=== PATIENT | female | born 1990 | race African-American/Black ===

== ENCOUNTER 2016-10-30 15:36 | Inpatient (IN) | payer OTHER, MEDICAID ==
[2016-10-30] MEDS ORDERED: Misoprostol 100 MCG Tab VAG PRN (16:46)
[2016-10-30] MEDS ORDERED: Nalbuphine 20 MG/1 ML Amp IVPUSH PRN (16:46)
[2016-10-30] MEDS ORDERED: Sodium Chloride 0.9% 10 ML Syringe FLUSH PRN (16:46)
[2016-10-30] MEDS ORDERED: Ondansetron 4 MG/2 ML SDV IVPUSH PRN (16:46)
[2016-10-30] MEDS ORDERED: Zolpidem 5 MG Tab PO PRN (16:46)
--- NOTE | 2016-10-30 16:53 | PCM.LDHP ---
L&D History of Present Illness - General Date of Service: 10/30/16 Admit Problem/Dx: Patient Status Order with Admit Dx/Problem 10/30/16 15:52 Patient Status [ADT] Routine Admission Diagnosis/Problem Admission Diagnosis/Problem Normal Source of Information: Patient History Limitations: Reports: No Limitations - History of Present Illness Introduction:: Patient is a 26 y/o at 40 1/7 wks who presents to L&D for NST and serial BP 's after being seen in clinic with a mild range BP and intermittent headaches. Doing well. No new concerns. 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: : 1 Para: 0 LMP (Approximate): - Past Surgical History HEENT Surgical History: Reports: Visual (Corneal transplant) Social & Family History - Family History Family Medical History: Noncontributory - Tobacco Use Smoking Status *Q: Former Smoker - Alcohol Use Alcohol Use History: No - Recreational Drug Use Recreational Drug Use: No H&P Review of Systems - Review of Systems: Review Of Systems: See Below General: Reports: No Symptoms HEENT: Reports: Headaches Pulmonary: Reports: No Symptoms Cardiovascular: Reports: No Symptoms Gastrointestinal: Reports: No Symptoms Genitourinary: Reports: No Symptoms Musculoskeletal: Reports: No Symptoms Skin: Reports: No Symptoms Psychiatric: Reports: No Symptoms L&D Exam - Exam Exam: See Below - OB Specific Contraction Intensity: Irritability Movement: Active Heart Tones: Present Heart Tones per Min: 140 Heart Rate (FHR) Variability: Moderate (6-25 bmp) Presentation: Vertex - Bernardo Score Bernardo Score Cervix Position: Posterior Bernardo Score Consistency: Medium Bernardo Score Effacement: 0-30% Bernardo Score Dilation: 1-2 cm Bernardo Score 's Station: -3 Bernardo Score Total: 2 - Exam General: Alert, Oriented, Cooperative Lungs: Clear to Auscultation, Normal Respiratory Effort Cardiovascular: Regular Rate, Regular Rhythm Abdomen: Soft Genitourinary: Normal external exam Extremities: Normal Inspection Skin: Warm, Dry, Intact - Patient Data Result Diagrams: 10/30/16 17:40 - Problem List (1) 40 weeks gestation of SNOMED Code(s): 54929472 ICD Code: Z3A.40 - 40 WEEKS GESTATION OF Status: Acute Current Visit: Yes (2) Preeclampsia SNOMED Code(s): 726285675 ICD Code: O14.90 - UNSPECIFIED PRE-ECLAMPSIA, UNSPECIFIED TRIMESTER Status : Acute Current Visit: Yes Qualifiers: Trimester: third trimester Qualified Code(s): O14.93 - Unspecified pre- eclampsia, third trimester (3) Sickle cell trait SNOMED Code(s): 27521032 ICD Code: D57.3 - SICKLE-CELL TRAIT Status: Acute Current Visit: Yes (4) Group B Streptococcus carrier, +RV culture, currently SNOMED Code(s): 45138082, 203426737 ICD Code: O99.820 - STREPTOCOCCUS B CARRIER STATE COMPLICATING Status: Acute Current Visit: Yes Problem List Initiated/Reviewed/Updated: Yes Orders Last 24hrs: Active Orders 24 hr Category Date Time Status Patient Status [ADT] Routine ADT 10/30/16 15:52 Active Communication Order [RC] ASDIRECTED Care 10/30/16 16:47 Ordered Communication Order [RC] ASDIRECTED Care 10/30/16 16:47 Ordered Monitoring [RC] CONTINUOUS Care 10/30/16 16:47 Ordered Non Stress Test [RC] PER UNIT ROUTINE Care 10/30/16 15:52 Inactive Notify Provider Status Change [RC] ASDIRECTED Care 10/30/16 16:46 Ordered Notify Provider Vital Signs [RC] ASDIRECTED Care 10/30/16 16:46 Ordered Notify Provider [RC] ASDIRECTED Care 10/30/16 16:47 Ordered Notify Provider [RC] ASDIRECTED Care 10/30/16 16:47 Ordered Notify Provider [RC] PRN Care 10/30/16 16:47 Ordered Oxygen Therapy [RC] PRN Care 10/30/16 16:47 Ordered Peripheral IV Care [RC] . DIRECTED Care 10/30/16 16:48 Ordered Vaginal Exam [RC] ASDIRECTED Care 10/30/16 16:47 Ordered Vital Signs [RC] ASDIRECTED Care 10/30/16 15:52 Inactive Vital Signs [RC] ASDIRECTED Care 10/30/16 16:47 Ordered Regular Diet [DIET] Diet 10/30/16 Dinner Ordered CBC W/O DIFF,HEMOGRAM [HEME] Routine Lab 10/30/16 16:46 Ordered TYPE AND SCREEN [BBK] Routine Lab 10/30/16 16:46 Ordered Lactated Ringers [Ringers, Lactated] 1,000 ml Med 10/30/16 17:00 Ordered IV ASDIRECTED Misoprostol [Cytotec] Med 10/30/16 16:46 Ordered 25 mcg VAG Q4H PRN Nalbuphine [Nubain] Med 10/30/16 16:46 Ordered 10 mg IVPUSH Q2H PRN Ondansetron [Zofran] Med 10/30/16 16:46 Ordered 4 mg IVPUSH Q4H PRN Oxytocin/Lactated Ringers [Pitocin in LR 10 Units/1,000 Med 10/30/16 17:00 Ordered ML] 10 unit in 1,000 ml IV TITRATE Sodium Chloride 0.9% [Saline Flush] Med 10/30/16 16:46 Ordered 10 ml FLUSH ASDIRECTED PRN Zolpidem [Ambien] Med 10/30/16 16:46 Ordered 10 mg PO BEDTIME PRN Blood Pressure [OM.PC] ASDIRECTED Oth 10/30/16 17:00 Ordered Deep Tendon Reflexes [WOMSER] ASDIRECTED Oth 10/30/16 17:00 Ordered Peripheral IV Insertion Adult [OM.PC] Routine Oth 10/30/16 16:47 Ordered Resuscitation Status Routine Resus Stat 10/30/16 15:52 Ordered Medication Orders Lactated Ringer's (Ringers, Lactated) 1,000 mls @ 40 mls/hr IV ASDIRECTED AYSE Oxytocin/Lactated Ringer's (Pitocin In Lr 10 Units/1,000 Ml) 10 unit in 1,000 mls @ 500 mls/hr IV TITRATE AYSE PRN Reason: Protocol Misoprostol (Cytotec) 25 mcg VAG Q4H PRN PRN Reason: cervical ripening Stop: 10/31/16 00:47 Nalbuphine HCl (Nubain) 10 mg IVPUSH Q2H PRN PRN Reason: Pain (moderate 4-6) Ondansetron HCl (Zofran) 4 mg IVPUSH Q4H PRN PRN Reason: Nausea/Vomiting Sodium Chloride (Saline Flush) 10 ml FLUSH ASDIRECTED PRN PRN Reason: Keep Vein Open Zolpidem Tartrate (Ambien) 10 mg PO BEDTIME PRN PRN Reason: Insomnia Assessment/Plan Comment:: 26 y/o at 40 1/7 wks presents for serial BP's - findings of all mild range BP's. Will keep for IOL for preeclampsia * Labs done in clinic and WNL. Will do T&S and CBC here as patient does desire epidural eventually * Cytotec for induction * Will start PCN for GBS positive status when switch to pitocin, likely after 3 doses of cytotec * Monitor BP's and signs/symptoms of preeclampsia closely * Anticipate Kalie Ponce MD
[2016-10-30] MEDS ORDERED: Oxytocin/Lactated Ringers 10 UNIT/1,000 ML BAG IV SCH (17:00)
[2016-10-30] MEDS ORDERED: Diphtheria,Pertussis(Acell),Tetanus Vaccine 0.5 ML SDV IM ONE (18:03)
[2016-10-30] MEDS: Misoprostol 25 MCG (1/4 of 100 MCG) Tab VAG SCH ×2 (18:45→23:26)
--- NOTE | 2016-10-30 19:28 | PCM.PREANE ---
Preanesthetic Assessment - Procedure Proposed Procedure: Labor Epidural - Anesthesia/Transfusion/Family Hx Anesthesia History: Prior Anesthesia Without Reaction Family History of Anesthesia Reaction: No Transfusion History: No Prior Transfusion(s) Intubation History: Unknown Additional History: Bilateral cornea transplants - Review of Systems General: No Symptoms Pulmonary: No Symptoms Cardiovascular: Other (HTN with ) Neurological: No Symptoms Other: Reports: None - Physical Assessment NPO Status Date: 10/30/16 NPO Status Time: 16:00 O2 Sat by Pulse Oximetry: 98 Respiratory Rate: 14 Vital Signs: Last Vital Signs Temp 36.9 C 10/30/16 17:59 Pulse 86 10/30/16 17:59 Resp 14 10/30/16 17:59 BP 134/87 10/30/16 17:59 Pulse Ox 98 10/30/16 17:59 Height: 1.6 m Weight: 97.069 kg ASA Class: 2 Mental Status: Alert & Oriented x3 Airway Class: Mallampati = 2 Dentition: Reports: Normal Dentition Thyro-Mental Finger Breadths: 3 Mouth Opening Finger Breadths: 3 ROM/Head Extension: Full Lungs: Clear to auscultation, Normal respiratory effort Cardiovascular: Regular Rate, Regular Rhythm - Lab Values: Laboratory Last Values WBC 6.46 K/mm3 (3.98-10.04) 10/30/16 17:40 RBC 4.73 M/mm3 (3.98-5.22) 10/30/16 17:40 Hgb 11.9 gm/L (11.2-15.7) 10/30/16 17:40 Hct 36.8 % (34.1-44.9) 10/30/16 17:40 MCV 77.8 fl (79.4-94.8) L 10/30/16 17:40 MCH 25.2 pg (25.6-32.2) L 10/30/16 17:40 MCHC 32.3 g/dl (32.2-35.5) 10/30/16 17:40 RDW Std Deviation 45.7 fL (36.4-46.3) 10/30/16 17:40 Plt Count 296 K/mm3 (182-369) 10/30/16 17:40 MPV 9.5 fl (9.4-12.3) 10/30/16 17:40 Blood Type O POSITIVE 10/30/16 17:40 Gel Antibody Screen Negative 10/30/16 17:40 - Allergies Allergies/Adverse Reactions: Allergies Allergy/AdvReac Type Severity Reaction Status Date / Time No Known Allergies Allergy Verified 10/30/16 18:03 - Blood Blood Available: No Product(s) Available: None - Anesthesia Plan Pre-Op Medication Ordered: None - Acknowledgements Anesthesia Type Planned: Epidural Pt an Appropriate Candidate for the Planned Anesthesia: Yes Alternatives and Risks of Anesthesia Discussed w Pt/Guardian: Yes Pt/Guardian Understands and Agrees with Anesthesia Plan: Yes PreAnesthesia Questionnaire 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: Endocrine/Metabolic History: Reports: Obesity/BMI 30+ - Past Surgical History HEENT Surgical History: Reports: Other (See Below) Other HEENT Surgeries/Procedures: Cornea transplant 2014 - SUBSTANCE USE Smoking Status *Q: Former Smoker Tobacco Use Within Last Twelve Months: No Recreational Drug Use History: No - HOME MEDS Home Medications: Home Meds PNV95/Ferrous Fumarate/FA [ Tablet] 1 tab PO DAILY 10/30/16 [History] Sulfacetm Na/Prednisol Ac [Blephamide Eye Ointment] 3.5 gm OP DAILY 10/30/16 [ History] - CURRENT (IN HOUSE) MEDS Current Meds: Current Medications Lactated Ringer's (Ringers, Lactated) 1,000 mls @ 40 mls/hr IV ASDIRECTED AYSE Oxytocin/Lactated Ringer's (Pitocin In Lr 10 Units/1,000 Ml) 10 unit in 1,000 mls @ 500 mls/hr IV TITRATE AYSE PRN Reason: Protocol Misoprostol (Cytotec) 25 mcg VAG Q4H AYSE Last Admin: 10/30/16 18:45 Dose: 25 mcg Nalbuphine HCl (Nubain) 10 mg IVPUSH Q2H PRN PRN Reason: Pain (moderate 4-6) Ondansetron HCl (Zofran) 4 mg IVPUSH Q4H PRN PRN Reason: Nausea/Vomiting Sodium Chloride (Saline Flush) 10 ml FLUSH ASDIRECTED PRN PRN Reason: Keep Vein Open Zolpidem Tartrate (Ambien) 10 mg PO BEDTIME PRN PRN Reason: Insomnia Discontinued Medications Diphtheria/Tetanus/Acell Pertussis (Adacel) 0.5 ml IM .ONCE ONE Stop: 10/30/16 18:04 Misoprostol (Cytotec) 25 mcg VAG Q4H PRN PRN Reason: cervical ripening Stop: 10/31/16 00:47
[2016-10-31] MEDS: Misoprostol 25 MCG (1/4 of 100 MCG) Tab VAG SCH (03:38)
--- NOTE | 2016-10-31 07:30 | PCM.PNLD ---
Labor Progress Note - VS & Meds Vital Signs: Last Vital Signs Temp 36.9 C 10/30/16 17:59 Pulse 86 10/30/16 17:59 Resp 14 10/30/16 20:02 BP 134/87 10/30/16 17:59 Pulse Ox 98 10/30/16 20:02 Active Medications: Current Medications Lactated Ringer's (Ringers, Lactated) 1,000 mls @ 40 mls/hr IV ASDIRECTED AYSE Oxytocin/Lactated Ringer's (Pitocin In Lr 10 Units/1,000 Ml) 10 unit in 1,000 mls @ 500 mls/hr IV TITRATE AYSE PRN Reason: Protocol Misoprostol (Cytotec) 25 mcg VAG Q4H AYSE Last Admin: 10/31/16 03:38 Dose: 25 mcg Nalbuphine HCl (Nubain) 10 mg IVPUSH Q2H PRN PRN Reason: Pain (moderate 4-6) Ondansetron HCl (Zofran) 4 mg IVPUSH Q4H PRN PRN Reason: Nausea/Vomiting Sodium Chloride (Saline Flush) 10 ml FLUSH ASDIRECTED PRN PRN Reason: Keep Vein Open Zolpidem Tartrate (Ambien) 10 mg PO BEDTIME PRN PRN Reason: Insomnia Last Admin: 10/31/16 00:30 Dose: 10 mg Discontinued Medications Diphtheria/Tetanus/Acell Pertussis (Adacel) 0.5 ml IM .ONCE ONE Stop: 10/30/16 18:04 Misoprostol (Cytotec) 25 mcg VAG Q4H PRN PRN Reason: cervical ripening Stop: 10/31/16 00:47 - Uterine Contractions Uterine Monitoring Mode: External [place] Contraction Intensity: Mild Uterine Resting Tone: Soft - Monitoring Monitor Mode: External Ultrasound Heart Rate (FHR) Baseline: 140 Heart Rate (FHR) Variability: Moderate (6-25 bmp) Accelerations: Present, 15x15 Decelerations: Variable (Rare overnight) Strip Review: Category II - Vaginal Exam Dilation (cm): 2 Effacement (Percent): 70 Station: -3 Cervical Position: Midposition - Labor Progress (Free Text) Labor Progress: Patient doing well. S/p 3 doses of Cytotec overnight. Brownlee bulb placed this morning. Will also start pitocin. GBS prophylaxis to be started later this AM/ when brownlee falls out.
[2016-10-31] MEDS ORDERED: Bupivacaine 0.25% 10 ML SDV ONE (09:00)
[2016-10-31] MEDS ORDERED: ePHEDrine 50 MG/ML SDV ONE (09:00)
[2016-10-31] MEDS ORDERED: Lidocaine 1% PF 2 ML SDV ONE (09:00)
[2016-10-31] MEDS: Lactated Ringers 1,000 ML IV SCH ×4 (09:15→16:01)
[2016-10-31] MEDS ORDERED: Oxytocin/Lactated Ringers 10 UNIT/1,000 ML BAG IV SCH (09:15)
[2016-10-31] MEDS ORDERED: Penicillin G Potassium 5 MILLUNITS in Sodium Chloride 0.9% 100 ML IV ONE (09:45)
--- NOTE | 2016-10-31 11:40 | PCM.PNLD ---
Labor Progress Note - VS & Meds Vital Signs: Last Vital Signs Temp 36.9 C 10/30/16 17:59 Pulse 86 10/30/16 17:59 Resp 14 10/30/16 20:02 BP 134/87 10/30/16 17:59 Pulse Ox 98 10/30/16 20:02 Active Medications: Current Medications Lactated Ringer's (Ringers, Lactated) 1,000 mls @ 40 mls/hr IV ASDIRECTED AYSE Last Admin: 10/31/16 09:15 Dose: 40 mls/hr Oxytocin/Lactated Ringer's (Pitocin In Lr 10 Units/1,000 Ml) 10 unit in 1,000 mls @ 500 mls/hr IV TITRATE AYSE PRN Reason: Protocol Oxytocin/Lactated Ringer's (Pitocin In Lr 10 Units/1,000 Ml) 10 unit in 1,000 mls @ 12 mls/hr IV TITRATE AYSE; 2 MUNITS/MIN PRN Reason: Protocol Last Titration: 10/31/16 11:11 Dose: 4 munits/min, 24 mls/hr Misoprostol (Cytotec) 25 mcg VAG Q4H AYSE Last Admin: 10/31/16 03:38 Dose: 25 mcg Nalbuphine HCl (Nubain) 10 mg IVPUSH Q2H PRN PRN Reason: Pain (moderate 4-6) Ondansetron HCl (Zofran) 4 mg IVPUSH Q4H PRN PRN Reason: Nausea/Vomiting Sodium Chloride (Saline Flush) 10 ml FLUSH ASDIRECTED PRN PRN Reason: Keep Vein Open Zolpidem Tartrate (Ambien) 10 mg PO BEDTIME PRN PRN Reason: Insomnia Last Admin: 10/31/16 00:30 Dose: 10 mg Discontinued Medications Diphtheria/Tetanus/Acell Pertussis (Adacel) 0.5 ml IM .ONCE ONE Stop: 10/30/16 18:04 Penicillin G Potassium 5 (millunits/ Sodium Chloride) 100 mls @ 55 mls/hr IV ONETIME ONE Stop: 10/31/16 11:34 Last Admin: 10/31/16 11:12 Dose: 55 mls/hr Misoprostol (Cytotec) 25 mcg VAG Q4H PRN PRN Reason: cervical ripening Stop: 10/31/16 00:47 - Uterine Contractions Uterine Monitoring Mode: External [place] Contraction Intensity: Mild to Moderate Uterine Resting Tone: Soft - Monitoring Monitor Mode: External Ultrasound Heart Rate (FHR) Baseline: 140 Heart Rate (FHR) Variability: Moderate (6-25 bmp) Accelerations: Present, 15x15 Decelerations: None Strip Review: Category I - Vaginal Exam Dilation (cm): 2 Effacement (Percent): 70 Station: -3 Cervical Position: Midposition - Labor Progress (Free Text) Labor Progress: Patient feeling uncomfortable with pitocin. Only at 2. Requesting epidural. Given similar exam have asked patient to try to be up on ball/etc with contractions. If does need an epidural can be given, but there is a long time to delivery. She expressed understanding. CAROLINEN started
[2016-10-31] MEDS ORDERED: diphenhydrAMINE 50 MG/ML SDV IVPUSH PRN ×2 (13:04→19:41)
[2016-10-31] MEDS ORDERED: fentaNYL 100 MCG/2 ML SDV EPIDUR PRN (13:04)
[2016-10-31] MEDS ORDERED: ePHEDrine 50 MG/ML SDV IVPUSH PRN (13:04)
[2016-10-31] MEDS ORDERED: Bupivacaine/fentaNYL/NS 100 ML Bag EPIDUR SCH (13:15)
--- NOTE | 2016-10-31 16:03 | PCM.PNLD ---
Labor Progress Note - VS & Meds Vital Signs: Last Vital Signs Temp 36.9 C 10/30/16 17:59 Pulse 86 10/30/16 17:59 Resp 14 10/30/16 20:02 BP 134/87 10/30/16 17:59 Pulse Ox 98 10/30/16 20:02 Active Medications: Current Medications Diphenhydramine HCl (Benadryl) 25 mg IVPUSH Q6H PRN PRN Reason: pruritis Ephedrine Sulfate (Ephedrine Sulfate) 5 mg IVPUSH ASDIRECTED PRN PRN Reason: Hypotension Fentanyl (Sublimaze) 100 mcg EPIDUR Q3H PRN PRN Reason: Pain Last Admin: 10/31/16 14:02 Dose: 100 mcg Fentanyl/Bupivacaine HCl (Fentanyl/Bupivacaine/Ns 2 Mcg-0.125% 100 Ml) 100 ml EPIDUR ASDIRECTED AYSE Last Admin: 10/31/16 14:02 Dose: 100 ml Lactated Ringer's (Ringers, Lactated) 1,000 mls @ 40 mls/hr IV ASDIRECTED AYSE Last Admin: 10/31/16 14:32 Dose: 40 mls/hr Oxytocin/Lactated Ringer's (Pitocin In Lr 10 Units/1,000 Ml) 10 unit in 1,000 mls @ 500 mls/hr IV TITRATE AYSE PRN Reason: Protocol Oxytocin/Lactated Ringer's (Pitocin In Lr 10 Units/1,000 Ml) 10 unit in 1,000 mls @ 12 mls/hr IV TITRATE AYSE; 2 MUNITS/MIN PRN Reason: Protocol Last Titration: 10/31/16 15:20 Dose: 8 munits/min, 48 mls/hr Penicillin G Potassium 2.5 (millunits/ Sodium Chloride) 100 mls @ 55 mls/hr IV Q6H AYSE Misoprostol (Cytotec) 25 mcg VAG Q4H AYSE Last Admin: 10/31/16 03:38 Dose: 25 mcg Nalbuphine HCl (Nubain) 10 mg IVPUSH Q2H PRN PRN Reason: Pain (moderate 4-6) Ondansetron HCl (Zofran) 4 mg IVPUSH Q4H PRN PRN Reason: Nausea/Vomiting Sodium Chloride (Saline Flush) 10 ml FLUSH ASDIRECTED PRN PRN Reason: Keep Vein Open Zolpidem Tartrate (Ambien) 10 mg PO BEDTIME PRN PRN Reason: Insomnia Last Admin: 10/31/16 00:30 Dose: 10 mg Discontinued Medications Diphtheria/Tetanus/Acell Pertussis (Adacel) 0.5 ml IM .ONCE ONE Stop: 10/30/16 18:04 Penicillin G Potassium 5 (millunits/ Sodium Chloride) 100 mls @ 55 mls/hr IV ONETIME ONE Stop: 10/31/16 11:34 Last Admin: 10/31/16 11:12 Dose: 55 mls/hr Misoprostol (Cytotec) 25 mcg VAG Q4H PRN PRN Reason: cervical ripening Stop: 10/31/16 00:47 - Uterine Contractions Uterine Monitoring Mode: External [place] Contraction Intensity: Moderate Uterine Resting Tone: Soft - Monitoring Monitor Mode: External Ultrasound Heart Rate (FHR) Baseline: 145 Heart Rate (FHR) Variability: Moderate (6-25 bmp) Accelerations: Present, 15x15 - Vaginal Exam Dilation (cm): 4 Effacement (Percent): 70 Station: -3 Cervical Position: Midposition - Labor Progress (Free Text) Labor Progress: Patient was on 8 of pitocin. Nursing had concerns for possible deceleration into the 50's for 30 seconds. I presented and FHR in the 140's. Uncertain whether brief monitoring in the 50's/60's was monitor halving FHR. Nuring already discontinued pitocin. AROM performed by me with FSE placed. Thin meconium staining noted. Will continue to monitor closely for now and restart pitocin if able.
[2016-10-31] MEDS ORDERED: Citric Acid/Sodium Citrate Solution 30 ML Cup PO ONE (16:58)
[2016-10-31] MEDS ORDERED: ceFAZolin 2 GM in Premix Bag 1 BAG IV ONE (16:58)
[2016-10-31] MEDS ORDERED: Metoclopramide 10 MG/2 ML SDV IVPUSH ONE (16:58)
--- NOTE | 2016-10-31 16:58 | PCM.SN ---
- Free Text/Narrative Note: Baby has now had continued intermittent late decelerations and variables. Also with longer period of minimal variability. Discussed with patient that cervix is similar to last exam. Only on pitocin of 4 which again was discontinued. Reviewed options and recommendation for for NRFS. They agree. OR crew and [employer] team aware. Kalie Ponce MD
[2016-10-31] MEDS ORDERED: Lactated Ringers 1,000 ML IV SCH (17:00)
[2016-10-31] MEDS ORDERED: Penicillin G Potassium 2.5 MILLUNITS in Sodium Chloride 0.9% 100 ML IV SCH (17:00)
--- NOTE | 2016-10-31 17:01 | PCM.OPNOTE ---
- General Post-Op/Procedure Note Date of Surgery/Procedure: 10/31/16 Operative Procedure(s): Primary Low Transverse Findings: Baby girl in a vertex presentation. Weight of 8lbs 4oz and APGARS of 8 & 9. Normal appearance of the uterus, fallopian tubes, and ovaries. Pre Op Diagnosis: 40 weeks gestation. Preeclampsia. Non reassuring status. Thick meconium stained fluid Post-Op Diagnosis: Same Anesthesia Technique: Epidural Primary Surgeon: Kalie Ponce Secondary Surgeon: Zelalem Brooks Anesthesia Provider: Bayron Starr Pathology: Cord blood collected. Placenta discarded. Fluid Replacement, Intraop: 1,200 Output, Urine Amount: 100 EBL in mLs: 500 Complications: None Condition: Good Free Text/Narrative:: The risks, benefits, indications, potential complications, and alternatives were explained to the patient and informed consent obtained. After induction of anesthesia, the patient was placed in a supine position and then draped and prepped in the usual sterile manner. A Pfannenstiel incision was made and carried down through the subcutaneous tissue to the fascia. Fascial incision was made and extended transversely. The fascia was from the underlying rectus tissue superiorly and inferiorly. The peritoneum was identified and entered. Peritoneal incision was extended longitudinally. The utero-vesical peritoneal reflection was incised transversely and the bladder flap was bluntly freed from the lower uterine segment. A low transverse uterine incision was made sharply with a scalpel and extended bluntly in a cephalocaudad direction. A baby girl was delivered from a vertex presentation with APGARS as above. After the umbilical cord was clamped and cut cord blood was obtained for evaluation. The placenta was removed intact and appeared normal. The uterus was exteriorized and cleared of clots. The uterine outline, tubes and ovaries appeared normal. The uterine incision was closed with running locked sutures of 0 Vicryl. Hemostasis was obtained with a second imbricating layer of 0 vicryl. The uterus was then placed back into the abdomen. The infracolic gutters were cleared of blood clots. The fascia was then reapproximated with running sutures of 0 Vicryl. The sucutaneous tissue was irrigated with sterile warm normal saline, hemostasis obtained with cautery. This layer was also closed with a running 0 Vicryl. The skin was reapproximated with running Subcuticular 4-0 monocryl sutures. Instrument, sponge, and needle counts were correct prior the abdominal closure and at the conclusion of the case.
[2016-10-31] MEDS ORDERED: Morphine PF 10 MG/10 ML SDV ONE (17:04)
[2016-10-31] MEDS ORDERED: Oxytocin 10 Units/1 ML SDV ONE (17:04)
[2016-10-31] MEDS ORDERED: ceFAZolin 1 GM Vial ONE (17:04)
[2016-10-31] MEDS ORDERED: Ondansetron 4 MG/2 ML SDV ONE (17:04)
[2016-10-31] MEDS ORDERED: Lactated Ringers 2,000 ML ONE (17:04)
[2016-10-31] MEDS ORDERED: Ketorolac 30 MG/ML SDV ONE (17:04)
[2016-10-31] MEDS ORDERED: Lidocaine 2% with EPINEPHrine 1:200,000 20 ML SDV ONE (17:09)
[2016-10-31] MEDS ORDERED: Sodium Bicarbonate 8.4% 50 MEQ/50 ML SDV ONE (17:09)
[2016-10-31] MEDS ORDERED: fentaNYL 100 MCG/2 ML SDV IVPUSH PRN (17:43)
[2016-10-31] MEDS ORDERED: Ondansetron 4 MG/2 ML SDV IVPUSH PRN (17:43)
--- NOTE | 2016-10-31 18:26 | PCM.POSTAN ---
POST ANESTHESIA ASSESSMENT - MENTAL STATUS Mental Status: alert, oriented - VITAL SIGNS Pulse Rate: 77 SaO2: 99 Resp Rate: 23 Blood Pressure: 120/59 Temperature: 97.7 F - RESPIRATORY Respiratory Status: respiratory rate WNL, airway patent, O2 saturation stable, supplemental oxygen - CARDIOVASCULAR CV Status: pulse rate WNL, blood pressure stable - GASTROINTESTINAL GI Status: no symptoms - PAIN Pain Score: 0 - POST OP HYDRATION Hydration Status: adequate & stable
[2016-10-31] MEDS ORDERED: Dextrose 5%-Lactated Ringers 1,000 ML IV SCH (19:41)
[2016-10-31] MEDS ORDERED: Lanolin 100% Cream 7 GM Tube TOP PRN (19:41)
[2016-10-31] MEDS: diphenhydrAMINE 50 MG/ML SDV IVPUSH PRN (22:56)
[2016-11-01] MEDS: Ketorolac 30 MG/ML SDV IVPUSH SCH ×3 (00:44→12:31)
--- NOTE | 2016-11-01 07:05 | PCM.PNPP ---
- General Info Date of Service: 11/01/16 Functional Status: Reports: pain controlled, tolerating diet, ambulating, urinating - Review of Systems General: Reports: No Symptoms Pulmonary: Reports: no symptoms Cardiovascular: Reports: No Symptoms Gastrointestinal: Reports: Abdominal pain (managed with medications ) Genitourinary: Reports: no symptoms Musculoskeletal: Reports: no symptoms - Patient Data Vital Signs - most recent: Last Vital Signs Temp 36.7 C 11/01/16 04:51 Pulse 85 11/01/16 04:51 Resp 17 11/01/16 07:00 BP 133/69 11/01/16 04:51 Pulse Ox 100 11/01/16 07:00 Weight - most recent: 97.069 kg I&O - last 24 hours: Intake & Output 10/31/16 11/01/16 11/01/16 22:59 06:59 14:59 Intake Total 4000 Output Total 870 1200 Balance 3130 -1200 Lab Results - last 24 hrs: Laboratory Results - last 24 hr 11/01/16 Range/Units 05:57 WBC 7.40 (3.98-10.04) K/mm3 RBC 3.92 L (3.98-5.22) M/mm3 Hgb 10.0 L (11.2-15.7) gm/L Hct 30.8 L (34.1-44.9) % MCV 78.6 L (79.4-94.8) fl MCH 25.5 L (25.6-32.2) pg MCHC 32.5 (32.2-35.5) g/dl RDW Std Deviation 46.4 H (36.4-46.3) fL Plt Count 229 (182-369) K/mm3 MPV 9.2 L (9.4-12.3) fl Med Orders - Current: Current Medications Diphenhydramine HCl (Benadryl) 25 mg IVPUSH Q6H PRN PRN Reason: pruritis Last Admin: 10/31/16 22:56 Dose: 25 mg Diphenhydramine HCl (Benadryl) 25 mg IVPUSH Q6H PRN PRN Reason: Itching or Nausea Docusate Sodium (Colace) 100 mg PO Q12H PRN PRN Reason: Constipation Emollient Ointment (Lansinoh Hpa) 0 gm TOP ASDIRECTED PRN PRN Reason: Sore Nipples Fentanyl (Sublimaze) 50 mcg IVPUSH Q5M PRN PRN Reason: Pain Ibuprofen (Motrin) 600 mg PO Q6H PRN PRN Reason: mild pain or fever Ketorolac Tromethamine (Toradol) 30 mg IVPUSH Q6H [facility] Stop: 11/01/16 12:31 Last Admin: 11/01/16 00:44 Dose: 30 mg Ondansetron HCl (Zofran) 4 mg IVPUSH ONETIME PRN PRN Reason: Nausea/Vomiting Oxycodone/Acetaminophen (Percocet 325-5 Mg) 2 tab PO Q4H PRN PRN Reason: Pain (moderate 4-6) Discontinued Medications Cefazolin Sodium (Ancef) Confirm Administered Dose 2 gm .ROUTE .STK-MED ONE Stop: 10/31/16 17:05 Citric Acid/Sodium Citrate (Bicitra Solution) 30 ml PO ONETIME ONE Stop: 10/31/16 16:59 Last Admin: 10/31/16 17:14 Dose: 30 ml Diphenhydramine HCl (Benadryl) 25 mg IVPUSH Q6H PRN PRN Reason: pruritis Diphtheria/Tetanus/Acell Pertussis (Adacel) 0.5 ml IM .ONCE ONE Stop: 10/30/16 18:04 Ephedrine Sulfate (Ephedrine Sulfate) 5 mg IVPUSH ASDIRECTED PRN PRN Reason: Hypotension Last Admin: 10/31/16 16:19 Dose: 5 mg Fentanyl (Sublimaze) 100 mcg EPIDUR Q3H PRN PRN Reason: Pain Last Admin: 10/31/16 14:02 Dose: 100 mcg Fentanyl/Bupivacaine HCl (Fentanyl/Bupivacaine/Ns 2 Mcg-0.125% 100 Ml) 100 ml EPIDUR ASDIRECTED [facility] Last Admin: 10/31/16 14:02 Dose: 100 ml Lactated Ringer's (Ringers, Lactated) 1,000 mls @ 40 mls/hr IV ASDIRECTED [facility] Last Admin: 10/31/16 16:01 Dose: 40 mls/hr Oxytocin/Lactated Ringer's (Pitocin In Lr 10 Units/1,000 Ml) 10 unit in 1,000 mls @ 500 mls/hr IV TITRATE [facility] PRN Reason: Protocol Oxytocin/Lactated Ringer's (Pitocin In Lr 10 Units/1,000 Ml) 10 unit in 1,000 mls @ 12 mls/hr IV TITRATE AYSE; 2 MUNITS/MIN PRN Reason: Protocol Last Titration: 10/31/16 16:44 Dose: 0 munits/min, 0 mls/hr Penicillin G Potassium 5 (millunits/ Sodium Chloride) 100 mls @ 55 mls/hr IV ONETIME ONE Stop: 10/31/16 11:34 Last Admin: 10/31/16 11:12 Dose: 55 mls/hr Penicillin G Potassium 2.5 (millunits/ Sodium Chloride) 100 mls @ 55 mls/hr IV Q6H AYSE Lactated Ringer's (Ringers, Lactated) Confirm Administered Dose 2,000 mls @ as directed .ROUTE .STK-MED ONE Stop: 10/31/16 17:05 Lactated Ringer's (Ringers, Lactated) 1,000 mls @ 125 mls/hr IV ASDIRECTED AYSE Cefazolin Sodium/Dextrose 2 gm (/ Premix) 50 mls @ 100 mls/hr IV ONETIME ONE Stop: 10/31/16 17:27 Dextrose/Lactated Ringer's (Dextrose 5%-Lactated Ringers) 1,000 mls @ 125 mls/ hr IV ASDIRECTED [facility] Stop: 11/01/16 03:40 Last Admin: 10/31/16 20:21 Dose: 125 mls/hr Ketorolac Tromethamine (Toradol) Confirm Administered Dose 30 mg .ROUTE .STK- MED ONE Stop: 10/31/16 17:05 Lidocaine/Epinephrine (Xylocaine-Mpf 2%-Epi 1:200,000) Confirm Administered Dose 20 ml .ROUTE .STK-MED ONE Stop: 10/31/16 17:10 Metoclopramide HCl (Reglan) 10 mg IVPUSH ONETIME ONE Stop: 10/31/16 16:59 Last Admin: 10/31/16 17:14 Dose: 10 mg Misoprostol (Cytotec) 25 mcg VAG Q4H PRN PRN Reason: cervical ripening Stop: 10/31/16 00:47 Misoprostol (Cytotec) 25 mcg VAG Q4H AY[facility] Last Admin: 10/31/16 03:38 Dose: 25 mcg Morphine Sulfate (Duramorph Pf) Confirm Administered Dose 10 mg .ROUTE .STK-MED ONE Stop: 10/31/16 17:05 Nalbuphine HCl (Nubain) 10 mg IVPUSH Q2H PRN PRN Reason: Pain (moderate 4-6) Ondansetron HCl (Zofran) 4 mg IVPUSH Q4H PRN PRN Reason: Nausea/Vomiting Ondansetron HCl (Zofran) Confirm Administered Dose 4 mg .ROUTE .STK-MED ONE Stop: 10/31/16 17:05 Oxytocin (Pitocin) Confirm Administered Dose 10 unit .ROUTE .STK-MED ONE Stop: 10/31/16 17:05 Sodium Bicarbonate (Sodium Bicarbonate 8.4%) Confirm Administered Dose 50 meq .ROUTE .STK-MED ONE Stop: 10/31/16 17:10 Sodium Chloride (Saline Flush) 10 ml FLUSH ASDIRECTED PRN PRN Reason: Keep Vein Open Zolpidem Tartrate (Ambien) 10 mg PO BEDTIME PRN PRN Reason: Insomnia Last Admin: 10/31/16 00:30 Dose: 10 mg - Infant Interaction Infant Disposition, : [place] in Room with Family Interaction: Holding Infant Feeding: Attempted ; Nursed Fair/Poor - Recovery Exam Fundal Tone: Firm Fundal Level: 1 Fingerbreadths Below Umbilicus Fundal Placement: Midline Lochia Amount: Small Lochia Color: Rubra/Red Perineum Description: Intact, Minimal Bruising/Swelling Episiotomy/Laceration: None Bladder Status: Indwelling Catheter in Place Urinary Elimination: Indwelling Catheter - Exam General: alert, oriented, cooperative Lungs: Clear to auscultation, Normal respiratory effort Cardiovascular: Regular Rate, Regular Rhythm GI/Abdominal Exam: Soft, Tender (appropriate post op) Extremities: Normal Inspection Skin: warm, dry, intact Wound/Incisions: healing well, dressing dry and intact - Problem List & Annotations (1) 40 weeks gestation of SNOMED Code(s): 89159331 Code(s): Z3A.40 - 40 WEEKS GESTATION OF Status: Acute Current Visit: Yes (2) Preeclampsia SNOMED Code(s): 894875752 Code(s): O14.90 - UNSPECIFIED PRE-ECLAMPSIA, UNSPECIFIED TRIMESTER Status: Acute Current Visit: Yes Qualifiers: Trimester: third trimester Qualified Code(s): O14.93 - Unspecified pre- eclampsia, third trimester (3) Sickle cell trait SNOMED Code(s): 77795402 Code(s): D57.3 - SICKLE-CELL TRAIT Status: Acute Current Visit: Yes (4) Group B Streptococcus carrier, +RV culture, currently SNOMED Code(s): 71677938, 899569582 Code(s): O99.820 - STREPTOCOCCUS B CARRIER STATE COMPLICATING Status: Acute Current Visit: Yes (5) Non-reassuring status SNOMED Code(s): 759936662 Code(s): CHF2090 - Status: Acute Current Visit: Yes (6) S/P SNOMED Code(s): 603245948, 159642964 Code(s): Z98.891 - HISTORY OF UTERINE SCAR FROM PREVIOUS SURGERY Status: Acute Current Visit: Yes - Problem List Review Problem List Initiated/Reviewed/Updated: Yes - My Orders Last 24 Hours: My Active Orders 10/31/16 16:59 Procedure Site Prep Instruct [RC] ASDIRECTED Verify Patient Consent Obtain [RC] PER UNIT ROUTINE 10/31/16 19:41 Activity as Tolerated [RC] .Routine Antiembolic Devices [RC] PER UNIT ROUTINE Intake and Output [RC] Q4H Notify Provider Intake and Out [RC] ASDIRECTED RT Incentive Spirometry [RC] Q2HWA Acetaminophen/oxyCODONE [Percocet 325-5 MG] 2 tab PO Q4H PRN Docusate Sodium [Colace] 100 mg PO Q12H PRN Ibuprofen [Motrin] 600 mg PO Q6H PRN Lanolin [Lansinoh HPA] See Dose Instructions TOP ASDIRECTED PRN diphenhydrAMINE [Benadryl] 25 mg IVPUSH Q6H PRN Assess Lochia [WOMSER] Per Unit Routine Assess Uterine Involution [WOMSER] Per Unit Routine Breast Pump [WOMSER] Per Unit Routine Heat Therapy [OM.PC] Per Unit Routine Peripheral IV Discontinue [OM.PC] Routine Sequential Compression Device [OM.PC] Per Unit Routine 10/31/16 Dinner Regular Diet [DIET] 11/01/16 00:30 Ketorolac [Toradol] 30 mg IVPUSH Q6H 07/19/17 18:30 Urinary Catheter Removal [RC] Per Unit Routine - Assessment Assessment:: 26 y/o G1 now P1001 POD#1 from [facility] at 40 2/7 wks due to NRFS after IOL due to preeclampsia - Plan Plan:: S/p * Routine cares * Hb with appropriate drop this am, continue PNV on discharge * Encourage breast feeding * Discharge home in 1-2 days Preeclampsia * BP's appropriate post op. Continue to monitor closely. * Will need BP check in clinic in 1 week Kalie Ponce MD
[2016-11-01] MEDS: Misoprostol 25 MCG (1/4 of 100 MCG) Tab VAG SCH ×2 (07:57→07:58)
--- NOTE | 2016-11-01 08:28 | PCM48HPAN ---
Post Anesthesia Note - EVALUATION WITHIN 48HRS OF ANESTHETIC Vital Signs in Normal Range: Yes Patient Participated in Evaluation: Yes Respiratory Function Stable: Yes Airway Patent: Yes Cardiovascular Function Stable: Yes Hydration Status Stable: Yes Pain Control Satisfactory: Yes Nausea and Vomiting Control Satisfactory: Yes Mental Status Recovered: Yes - COMMENTS/OBSERVATIONS Free Text/Narrative:: Pt reports doing well. epidural worked well for both labor and subsequent c- section. now fully resolved. pt ambulating, taking po, no f/c. did have one episode of vomiting yesterday, nothing since.
[2016-11-01] MEDS: diphenhydrAMINE 50 MG/ML SDV IVPUSH PRN (11:10)
[2016-11-01] MEDS: Acetaminophen/oxyCODONE 325-5 MG Tab PO PRN ×2 (18:35→21:35)
[2016-11-02] MEDS: Acetaminophen/oxyCODONE 325-5 MG Tab PO PRN ×3 (03:05→22:07)
[2016-11-02] MEDS: Docusate Sodium 100 MG Cap PO PRN ×2 (03:06→22:09)
--- NOTE | 2016-11-02 06:26 | PCM.PNPP ---
- General Info Date of Service: 11/02/16 Functional Status: Reports: Tolerating Diet, Ambulating, Urinating - Review of Systems General: Reports: No Symptoms Pulmonary: Reports: No Symptoms Cardiovascular: Reports: No Symptoms Gastrointestinal: Reports: Abdominal Pain Genitourinary: Reports: No Symptoms Musculoskeletal: Reports: No Symptoms Neurological: Reports: No Symptoms - Patient Data Vital Signs - most recent: Last Vital Signs Temp 36.8 C 11/02/16 03:04 Pulse 85 11/02/16 03:04 Resp 15 11/02/16 03:04 BP 116/95 H 11/02/16 03:04 Pulse Ox 98 11/02/16 03:04 Weight - most recent: 97.069 kg I&O - last 24 hours: Intake & Output 11/01/16 11/01/16 11/02/16 14:59 22:59 06:59 Intake Total 400 120 Output Total 1050 350 Balance -650 -230 Med Orders - Current: Current Medications Diphenhydramine HCl (Benadryl) 25 mg IVPUSH Q6H PRN PRN Reason: pruritis Last Admin: 11/01/16 11:10 Dose: 25 mg Diphenhydramine HCl (Benadryl) 25 mg IVPUSH Q6H PRN PRN Reason: Itching or Nausea Docusate Sodium (Colace) 100 mg PO Q12H PRN PRN Reason: Constipation Last Admin: 11/02/16 03:06 Dose: 100 mg Emollient Ointment (Lansinoh Hpa) 0 gm TOP ASDIRECTED PRN PRN Reason: Sore Nipples Last Admin: 11/01/16 11:22 Dose: 1 tube Fentanyl (Sublimaze) 50 mcg IVPUSH Q5M PRN PRN Reason: Pain Ibuprofen (Motrin) 600 mg PO Q6H PRN PRN Reason: mild pain or fever Ondansetron HCl (Zofran) 4 mg IVPUSH ONETIME PRN PRN Reason: Nausea/Vomiting Oxycodone/Acetaminophen (Percocet 325-5 Mg) 2 tab PO Q4H PRN PRN Reason: Pain (moderate 4-6) Last Admin: 11/02/16 03:05 Dose: 2 tab Discontinued Medications Bupivacaine HCl (Sensorcaine-Mpf 0.25%) 10 ml .ROUTE .STK-MED ONE Stop: 10/31/16 09:01 Cefazolin Sodium (Ancef) Confirm Administered Dose 2 gm .ROUTE .STK-MED ONE Stop: 10/31/16 17:05 Citric Acid/Sodium Citrate (Bicitra Solution) 30 ml PO ONETIME ONE Stop: 10/31/16 16:59 Last Admin: 10/31/16 17:14 Dose: 30 ml Diphenhydramine HCl (Benadryl) 25 mg IVPUSH Q6H PRN PRN Reason: pruritis Diphtheria/Tetanus/Acell Pertussis (Adacel) 0.5 ml IM .ONCE ONE Stop: 10/30/16 18:04 Ephedrine Sulfate (Ephedrine Sulfate) 5 mg IVPUSH ASDIRECTED PRN PRN Reason: Hypotension Last Admin: 10/31/16 16:19 Dose: 5 mg Ephedrine Sulfate (Ephedrine Sulfate) 50 mg .ROUTE .STK-MED ONE Stop: 10/31/16 09:01 Fentanyl (Sublimaze) 100 mcg EPIDUR Q3H PRN PRN Reason: Pain Last Admin: 10/31/16 14:02 Dose: 100 mcg Fentanyl/Bupivacaine HCl (Fentanyl/Bupivacaine/Ns 2 Mcg-0.125% 100 Ml) 100 ml EPIDUR ASDIRECTED AYSE Last Admin: 10/31/16 14:02 Dose: 100 ml Lactated Ringer's (Ringers, Lactated) 1,000 mls @ 40 mls/hr IV ASDIRECTED AYSE Last Admin: 10/31/16 16:01 Dose: 40 mls/hr Oxytocin/Lactated Ringer's (Pitocin In Lr 10 Units/1,000 Ml) 10 unit in 1,000 mls @ 500 mls/hr IV TITRATE AYSE PRN Reason: Protocol Oxytocin/Lactated Ringer's (Pitocin In Lr 10 Units/1,000 Ml) 10 unit in 1,000 mls @ 12 mls/hr IV TITRATE AYSE; 2 MUNITS/MIN PRN Reason: Protocol Last Titration: 10/31/16 16:44 Dose: 0 munits/min, 0 mls/hr Penicillin G Potassium 5 (millunits/ Sodium Chloride) 100 mls @ 55 mls/hr IV ONETIME ONE Stop: 10/31/16 11:34 Last Admin: 10/31/16 11:12 Dose: 55 mls/hr Penicillin G Potassium 2.5 (millunits/ Sodium Chloride) 100 mls @ 55 mls/hr IV Q6H [facility] Last Admin: 11/01/16 07:57 Dose: Not Given Lactated Ringer's (Ringers, Lactated) Confirm Administered Dose 2,000 mls @ as directed .ROUTE .STK-MED ONE Stop: 10/31/16 17:05 Lactated Ringer's (Ringers, Lactated) 1,000 mls @ 125 mls/hr IV ASDIRECTED [facility] Cefazolin Sodium/Dextrose 2 gm (/ Premix) 50 mls @ 100 mls/hr IV ONETIME ONE Stop: 10/31/16 17:27 Last Admin: 11/01/16 07:56 Dose: Not Given Dextrose/Lactated Ringer's (Dextrose 5%-Lactated Ringers) 1,000 mls @ 125 mls/ hr IV ASDIRECTED [facility] Stop: 11/01/16 03:40 Last Admin: 10/31/16 20:21 Dose: 125 mls/hr Ketorolac Tromethamine (Toradol) Confirm Administered Dose 30 mg .ROUTE .STK- MED ONE Stop: 10/31/16 17:05 Ketorolac Tromethamine (Toradol) 30 mg IVPUSH Q6H [facility] Stop: 11/01/16 12:31 Last Admin: 11/01/16 12:31 Dose: 30 mg Lidocaine HCl (Xylocaine-Mpf 1%) 2 ml .ROUTE .STK-MED ONE Stop: 10/31/16 09:01 Lidocaine/Epinephrine (Xylocaine-Mpf 2%-Epi 1:200,000) Confirm Administered Dose 20 ml .ROUTE .STK-MED ONE Stop: 10/31/16 17:10 Metoclopramide HCl (Reglan) 10 mg IVPUSH ONETIME ONE Stop: 10/31/16 16:59 Last Admin: 10/31/16 17:14 Dose: 10 mg Misoprostol (Cytotec) 25 mcg VAG Q4H PRN PRN Reason: cervical ripening Stop: 10/31/16 00:47 Misoprostol (Cytotec) 25 mcg VAG Q4H [facility] Last Admin: 11/01/16 07:58 Dose: Not Given Morphine Sulfate (Duramorph Pf) Confirm Administered Dose 10 mg .ROUTE .STK-MED ONE Stop: 10/31/16 17:05 Nalbuphine HCl (Nubain) 10 mg IVPUSH Q2H PRN PRN Reason: Pain (moderate 4-6) Ondansetron HCl (Zofran) 4 mg IVPUSH Q4H PRN PRN Reason: Nausea/Vomiting Ondansetron HCl (Zofran) Confirm Administered Dose 4 mg .ROUTE .STK-MED ONE Stop: 10/31/16 17:05 Oxytocin (Pitocin) Confirm Administered Dose 10 unit .ROUTE .STK-MED ONE Stop: 10/31/16 17:05 Sodium Bicarbonate (Sodium Bicarbonate 8.4%) Confirm Administered Dose 50 meq .ROUTE .STK-MED ONE Stop: 10/31/16 17:10 Sodium Chloride (Saline Flush) 10 ml FLUSH ASDIRECTED PRN PRN Reason: Keep Vein Open Zolpidem Tartrate (Ambien) 10 mg PO BEDTIME PRN PRN Reason: Insomnia Last Admin: 10/31/16 00:30 Dose: 10 mg - Interaction Disposition, : [place] in Room with Family Infant Interaction: Holding Infant Infant Feeding: Attempted ; Nursed Fair/Poor - Recovery Exam Fundal Tone: Firm Fundal Level: 1 Fingerbreadths Below Umbilicus Fundal Placement: Midline Lochia Amount: Small Lochia Color: Rubra/Red Perineum Description: Intact, Minimal Bruising/Swelling Episiotomy/Laceration: None Bladder Status: Voiding Urinary Elimination: Voided Other Urinary Elimination, : hasn't voided since cath was removed at 0700 - Exam General: alert, oriented, cooperative Lungs: Clear to Auscultation, Normal Respiratory Effort Cardiovascular: Regular Rate, Regular Rhythm GI/Abdominal Exam: Soft, Tender (appropriate post op ) Extremities: Normal Inspection Skin: warm, dry, intact Wound/Incisions: healing well, no drainage - Problem List & Annotations (1) 40 weeks gestation of SNOMED Code(s): 00648110 Code(s): Z3A.40 - 40 WEEKS GESTATION OF Status: Acute Current Visit: Yes (2) Preeclampsia SNOMED Code(s): 847585930 Code(s): O14.90 - UNSPECIFIED PRE-ECLAMPSIA, UNSPECIFIED TRIMESTER Status: Acute Current Visit: Yes Qualifiers: Trimester: third trimester Qualified Code(s): O14.93 - Unspecified pre- eclampsia, third trimester (3) Sickle cell trait SNOMED Code(s): 71467101 Code(s): D57.3 - SICKLE-CELL TRAIT Status: Acute Current Visit: Yes (4) Group B Streptococcus carrier, +RV culture, currently SNOMED Code(s): 64342879, 348231204 Code(s): O99.820 - STREPTOCOCCUS B CARRIER STATE COMPLICATING Status: Acute Current Visit: Yes (5) Non-reassuring status SNOMED Code(s): 115231909 Code(s): XMI8809 - Status: Acute Current Visit: Yes (6) S/P SNOMED Code(s): 501206952, 710306764 Code(s): Z98.891 - HISTORY OF UTERINE SCAR FROM PREVIOUS SURGERY Status: Acute Current Visit: Yes - Problem List Review Problem List Initiated/Reviewed/Updated: Yes - Assessment Assessment:: 26 y/o G1 now P1001 POD#2 from [facility] at 40 2/7 wks due to NRFS after IOL due to preeclampsia - Plan Plan:: S/p * Routine cares * Encourage breast feeding, patient with some difficulties with this overnight * Discharge home tomorrow Preeclampsia * BP's mostly mild range in the last 24 hours * Will need BP check in clinic in 1 week Kalie Ponce MD
[2016-11-02] MEDS ORDERED: Acetaminophen/HYDROcodone 325-5 MG Tab PO ONE (06:31)
[2016-11-02] MEDS: Ibuprofen 600 MG Tab PO PRN (12:37)
[2016-11-03] MEDS: Ibuprofen 600 MG Tab PO PRN ×2 (01:40→09:26)
--- NOTE | 2016-11-03 07:34 | PCM.PNPP ---
- General Info Date of Service: 11/03/16 Functional Status: Reports: Pain Controlled, Tolerating Diet, Ambulating, Urinating - Review of Systems General: Reports: No Symptoms Pulmonary: Reports: No Symptoms Cardiovascular: Reports: No Symptoms Gastrointestinal: Reports: Abdominal Pain (improving) Genitourinary: Reports: No Symptoms Musculoskeletal: Reports: No Symptoms - Patient Data Vital Signs - most recent: Last Vital Signs Temp 36.9 C 11/03/16 03:39 Pulse 77 11/03/16 03:39 Resp 16 11/03/16 03:39 BP 134/68 11/03/16 03:39 Pulse Ox 97 11/03/16 03:39 Weight - most recent: 97.069 kg Med Orders - Current: Current Medications Diphenhydramine HCl (Benadryl) 25 mg IVPUSH Q6H PRN PRN Reason: pruritis Last Admin: 11/01/16 11:10 Dose: 25 mg Diphenhydramine HCl (Benadryl) 25 mg IVPUSH Q6H PRN PRN Reason: Itching or Nausea Docusate Sodium (Colace) 100 mg PO Q12H PRN PRN Reason: Constipation Last Admin: 11/02/16 22:09 Dose: 100 mg Emollient Ointment (Lansinoh Hpa) 0 gm TOP ASDIRECTED PRN PRN Reason: Sore Nipples Last Admin: 11/01/16 11:22 Dose: 1 tube Fentanyl (Sublimaze) 50 mcg IVPUSH Q5M PRN PRN Reason: Pain Ibuprofen (Motrin) 600 mg PO Q6H PRN PRN Reason: mild pain or fever Last Admin: 11/03/16 01:40 Dose: 600 mg Ondansetron HCl (Zofran) 4 mg IVPUSH ONETIME PRN PRN Reason: Nausea/Vomiting Oxycodone/Acetaminophen (Percocet 325-5 Mg) 2 tab PO Q4H PRN PRN Reason: Pain (moderate 4-6) Last Admin: 11/02/16 22:07 Dose: 2 tab Discontinued Medications Hydrocodone Bitart/Acetaminophen ([place] 325-5 Mg) 1 tab PO ONETIME ONE Stop: 11/02/16 06:32 Bupivacaine HCl (Sensorcaine-Mpf 0.25%) 10 ml .ROUTE .STK-MED ONE Stop: 10/31/16 09:01 Cefazolin Sodium (Ancef) Confirm Administered Dose 2 gm .ROUTE .STK-MED ONE Stop: 10/31/16 17:05 Citric Acid/Sodium Citrate (Bicitra Solution) 30 ml PO ONETIME ONE Stop: 10/31/16 16:59 Last Admin: 10/31/16 17:14 Dose: 30 ml Diphenhydramine HCl (Benadryl) 25 mg IVPUSH Q6H PRN PRN Reason: pruritis Diphtheria/Tetanus/Acell Pertussis (Adacel) 0.5 ml IM .ONCE ONE Stop: 10/30/16 18:04 Ephedrine Sulfate (Ephedrine Sulfate) 5 mg IVPUSH ASDIRECTED PRN PRN Reason: Hypotension Last Admin: 10/31/16 16:19 Dose: 5 mg Ephedrine Sulfate (Ephedrine Sulfate) 50 mg .ROUTE .STK-MED ONE Stop: 10/31/16 09:01 Fentanyl (Sublimaze) 100 mcg EPIDUR Q3H PRN PRN Reason: Pain Last Admin: 10/31/16 14:02 Dose: 100 mcg Fentanyl/Bupivacaine HCl (Fentanyl/Bupivacaine/Ns 2 Mcg-0.125% 100 Ml) 100 ml EPIDUR ASDIRECTED AYSE Last Admin: 10/31/16 14:02 Dose: 100 ml Lactated Ringer's (Ringers, Lactated) 1,000 mls @ 40 mls/hr IV ASDIRECTED AYSE Last Admin: 10/31/16 16:01 Dose: 40 mls/hr Oxytocin/Lactated Ringer's (Pitocin In Lr 10 Units/1,000 Ml) 10 unit in 1,000 mls @ 500 mls/hr IV TITRATE YASE PRN Reason: Protocol Oxytocin/Lactated Ringer's (Pitocin In Lr 10 Units/1,000 Ml) 10 unit in 1,000 mls @ 12 mls/hr IV TITRATE AYSE; 2 MUNITS/MIN PRN Reason: Protocol Last Titration: 10/31/16 16:44 Dose: 0 munits/min, 0 mls/hr Penicillin G Potassium 5 (millunits/ Sodium Chloride) 100 mls @ 55 mls/hr IV ONETIME ONE Stop: 10/31/16 11:34 Last Admin: 10/31/16 11:12 Dose: 55 mls/hr Penicillin G Potassium 2.5 (millunits/ Sodium Chloride) 100 mls @ 55 mls/hr IV Q6H [facility] Last Admin: 11/01/16 07:57 Dose: Not Given Lactated Ringer's (Ringers, Lactated) Confirm Administered Dose 2,000 mls @ as directed .ROUTE .STK-MED ONE Stop: 10/31/16 17:05 Lactated Ringer's (Ringers, Lactated) 1,000 mls @ 125 mls/hr IV ASDIRECTED [facility] Cefazolin Sodium/Dextrose 2 gm (/ Premix) 50 mls @ 100 mls/hr IV ONETIME ONE Stop: 10/31/16 17:27 Last Admin: 11/01/16 07:56 Dose: Not Given Dextrose/Lactated Ringer's (Dextrose 5%-Lactated Ringers) 1,000 mls @ 125 mls/ hr IV ASDIRECTED [facility] Stop: 11/01/16 03:40 Last Admin: 10/31/16 20:21 Dose: 125 mls/hr Ketorolac Tromethamine (Toradol) Confirm Administered Dose 30 mg .ROUTE .STK- MED ONE Stop: 10/31/16 17:05 Ketorolac Tromethamine (Toradol) 30 mg IVPUSH Q6H [facility] Stop: 11/01/16 12:31 Last Admin: 11/01/16 12:31 Dose: 30 mg Lidocaine HCl (Xylocaine-Mpf 1%) 2 ml .ROUTE .STK-MED ONE Stop: 10/31/16 09:01 Lidocaine/Epinephrine (Xylocaine-Mpf 2%-Epi 1:200,000) Confirm Administered Dose 20 ml .ROUTE .STK-MED ONE Stop: 10/31/16 17:10 Metoclopramide HCl (Reglan) 10 mg IVPUSH ONETIME ONE Stop: 10/31/16 16:59 Last Admin: 10/31/16 17:14 Dose: 10 mg Misoprostol (Cytotec) 25 mcg VAG Q4H PRN PRN Reason: cervical ripening Stop: 10/31/16 00:47 Misoprostol (Cytotec) 25 mcg VAG Q4H [facility] Last Admin: 11/01/16 07:58 Dose: Not Given Morphine Sulfate (Duramorph Pf) Confirm Administered Dose 10 mg .ROUTE .STK-MED ONE Stop: 10/31/16 17:05 Nalbuphine HCl (Nubain) 10 mg IVPUSH Q2H PRN PRN Reason: Pain (moderate 4-6) Ondansetron HCl (Zofran) 4 mg IVPUSH Q4H PRN PRN Reason: Nausea/Vomiting Ondansetron HCl (Zofran) Confirm Administered Dose 4 mg .ROUTE .STK-MED ONE Stop: 10/31/16 17:05 Oxytocin (Pitocin) Confirm Administered Dose 10 unit .ROUTE .STK-MED ONE Stop: 10/31/16 17:05 Sodium Bicarbonate (Sodium Bicarbonate 8.4%) Confirm Administered Dose 50 meq .ROUTE .STK-MED ONE Stop: 10/31/16 17:10 Sodium Chloride (Saline Flush) 10 ml FLUSH ASDIRECTED PRN PRN Reason: Keep Vein Open Zolpidem Tartrate (Ambien) 10 mg PO BEDTIME PRN PRN Reason: Insomnia Last Admin: 10/31/16 00:30 Dose: 10 mg - Interaction Disposition, : [place] in Room with Family Interaction: Holding Infant Feeding: Breastfed ; Nursed Well - Recovery Exam Fundal Tone: Firm Fundal Level: 1 Fingerbreadths Below Umbilicus Fundal Placement: Midline Lochia Amount: Small Lochia Color: Rubra/Red Perineum Description: Intact, Minimal Bruising/Swelling Episiotomy/Laceration: Approximated Bladder Status: Voiding Urinary Elimination: Voided Other Urinary Elimination, : hasn't voided since cath was removed at 0700 - Exam General: alert, oriented, cooperative Lungs: Clear to Auscultation, Normal Respiratory Effort Cardiovascular: Regular Rate, Regular Rhythm GI/Abdominal Exam: Soft, Tender (appropriate post op ) Extremities: Normal Inspection Skin: warm, dry, intact Wound/Incisions: healing well, dressing dry and intact - Problem List & Annotations (1) 40 weeks gestation of SNOMED Code(s): 29053135 Code(s): Z3A.40 - 40 WEEKS GESTATION OF Status: Acute Current Visit: Yes (2) Preeclampsia SNOMED Code(s): 278467493 Code(s): O14.90 - UNSPECIFIED PRE-ECLAMPSIA, UNSPECIFIED TRIMESTER Status: Acute Current Visit: Yes Qualifiers: Trimester: third trimester Qualified Code(s): O14.93 - Unspecified pre- eclampsia, third trimester (3) Sickle cell trait SNOMED Code(s): 18217872 Code(s): D57.3 - SICKLE-CELL TRAIT Status: Acute Current Visit: Yes (4) Group B Streptococcus carrier, +RV culture, currently SNOMED Code(s): 48485016, 970954032 Code(s): O99.820 - STREPTOCOCCUS B CARRIER STATE COMPLICATING Status: Acute Current Visit: Yes (5) Non-reassuring status SNOMED Code(s): 090471669 Code(s): OPO7994 - Status: Acute Current Visit: Yes (6) S/P SNOMED Code(s): 559565087, 039033947 Code(s): Z98.891 - HISTORY OF UTERINE SCAR FROM PREVIOUS SURGERY Status: Acute Current Visit: Yes - Problem List Review Problem List Initiated/Reviewed/Updated: Yes - Assessment Assessment:: 26 y/o G1 now P1001 POD#3 from PLTCS at 40 2/7 wks due to NRFS after IOL due to preeclampsia - Plan Plan:: S/p * Routine cares * Breast feeding well * Discharge home today Preeclampsia * BP's upper mild range yesterday. Asymptomatic. Continue present management. Given warning signs which should prompt sooner evaluation * Will need BP check in clinic in 1 week Kalie Ponce MD
--- NOTE | 2016-11-03 07:35 | PCM.DCSUM1 ---
Discharge Summary - Discharge Data Discharge Date: 11/03/16 Discharge Disposition: Home, Self-Care 01 Condition: Good - Discharge Diagnosis/Problem(s) (1) 40 weeks gestation of SNOMED Code(s): 67642722 ICD Code: Z3A.40 - 40 WEEKS GESTATION OF Status: Acute Current Visit: Yes (2) Preeclampsia SNOMED Code(s): 444283731 ICD Code: O14.90 - UNSPECIFIED PRE-ECLAMPSIA, UNSPECIFIED TRIMESTER Status : Acute Current Visit: Yes Qualifiers: Trimester: third trimester Qualified Code(s): O14.93 - Unspecified pre- eclampsia, third trimester (3) Sickle cell trait SNOMED Code(s): 55714822 ICD Code: D57.3 - SICKLE-CELL TRAIT Status: Acute Current Visit: Yes (4) Group B Streptococcus carrier, +RV culture, currently SNOMED Code(s): 91053768, 196059214 ICD Code: O99.820 - STREPTOCOCCUS B CARRIER STATE COMPLICATING Status: Acute Current Visit: Yes (5) Non-reassuring status SNOMED Code(s): 421007706 ICD Code: [id number] - Status: Acute Current Visit: Yes (6) S/P SNOMED Code(s): 893407034, 063010578 ICD Code: Z98.891 - HISTORY OF UTERINE SCAR FROM PREVIOUS SURGERY Status: Acute Current Visit: Yes - Patient Summary/Data Operative Procedure(s) Performed: Primary Low Transverse Complications: None Consults: None Recommended Follow-up Testing/Procedures: Follow up in 1-2 weeks for BP check and incision check Hospital Course: Patient is a 26 y/o who presented at 40 1/7 wks for IOL due to findings of preeclampsia/gestational HTN. Induction was started with Cytotec. Eventually she was switched to pitocin, but had some persistent decelerations with this. AROM done which revealed thick meconium stained fluid. Variability after this also decreased. Given so early in labor process and concerning FHR findings recommendations were made to proceed with a PLTCS. She agreed. This procedure was uncomplicated, see operative note. Post she did well. BP's remained mild range, but did not require anti-hypertensive therapy. She otherwise met all goals and was discharged home on POD#3. - Patient Instructions Diet: Regular Diet as Tolerated Activity: No Lifting Over 10 Pounds Activity, Other: Pelvic Rest for 6 weeks Driving: Do Not Drive (While using narcotics ) Showering/Bathing: May Shower Wound/Incision Care: Keep Operative Site/Wound Site Clean and Dry Notify Provider of: Fever, Increased Pain, Swelling and Redness, Drainage, Nausea and/or Vomiting - Discharge Plan Prescriptions/Med Rec: Acetaminophen/oxyCODONE [Percocet 325-5 MG] 2 tab PO Q4H PRN #25 tablet PRN Reason: Pain Home Medications: Home Meds PNV95/Ferrous Fumarate/FA [ Tablet] 1 tab PO DAILY 10/30/16 [History] Acetaminophen/oxyCODONE [Percocet 325-5 MG] 2 tab PO Q4H PRN #25 tablet [Rx] Docusate Sodium [Colace] 100 mg PO Q12H PRN #0 cap 11/02/16 [Rx] Ibuprofen [IJD: Ibuprofen] 600 mg PO Q6H PRN #0 tablet 11/02/16 [Rx] Patient Handouts: Smoking Cessation, Tips for Success, [id number], Smoking Hazards Referrals: Kalie Ponce MD [Primary Care Provider] - (1-2 weeks for post op check ) - Discharge Summary/Plan Comment DC Time >30 min.: No - Patient Data Vitals - Most Recent: Last Vital Signs Temp 36.9 C 11/03/16 03:39 Pulse 77 11/03/16 03:39 Resp 16 11/03/16 03:39 BP 134/68 11/03/16 03:39 Pulse Ox 97 11/03/16 03:39 Weight - Most Recent: 97.069 kg Med Orders - Current: Current Medications Diphenhydramine HCl (Benadryl) 25 mg IVPUSH Q6H PRN PRN Reason: pruritis Last Admin: 11/01/16 11:10 Dose: 25 mg Diphenhydramine HCl (Benadryl) 25 mg IVPUSH Q6H PRN PRN Reason: Itching or Nausea Docusate Sodium (Colace) 100 mg PO Q12H PRN PRN Reason: Constipation Last Admin: 11/02/16 22:09 Dose: 100 mg Emollient Ointment (Lansinoh Hpa) 0 gm TOP ASDIRECTED PRN PRN Reason: Sore Nipples Last Admin: 11/01/16 11:22 Dose: 1 tube Fentanyl (Sublimaze) 50 mcg IVPUSH Q5M PRN PRN Reason: Pain Ibuprofen (Motrin) 600 mg PO Q6H PRN PRN Reason: mild pain or fever Last Admin: 11/03/16 01:40 Dose: 600 mg Ondansetron HCl (Zofran) 4 mg IVPUSH ONETIME PRN PRN Reason: Nausea/Vomiting Oxycodone/Acetaminophen (Percocet 325-5 Mg) 2 tab PO Q4H PRN PRN Reason: Pain (moderate 4-6) Last Admin: 11/02/16 22:07 Dose: 2 tab Discontinued Medications Hydrocodone Bitart/Acetaminophen ([place] 325-5 Mg) 1 tab PO ONETIME ONE Stop: 11/02/16 06:32 Bupivacaine HCl (Sensorcaine-Mpf 0.25%) 10 ml .ROUTE .STK-MED ONE Stop: 10/31/16 09:01 Cefazolin Sodium (Ancef) Confirm Administered Dose 2 gm .ROUTE .STK-MED ONE Stop: 10/31/16 17:05 Citric Acid/Sodium Citrate (Bicitra Solution) 30 ml PO ONETIME ONE Stop: 10/31/16 16:59 Last Admin: 10/31/16 17:14 Dose: 30 ml Diphenhydramine HCl (Benadryl) 25 mg IVPUSH Q6H PRN PRN Reason: pruritis Diphtheria/Tetanus/Acell Pertussis (Adacel) 0.5 ml IM .ONCE ONE Stop: 10/30/16 18:04 Ephedrine Sulfate (Ephedrine Sulfate) 5 mg IVPUSH ASDIRECTED PRN PRN Reason: Hypotension Last Admin: 10/31/16 16:19 Dose: 5 mg Ephedrine Sulfate (Ephedrine Sulfate) 50 mg .ROUTE .STK-MED ONE Stop: 10/31/16 09:01 Fentanyl (Sublimaze) 100 mcg EPIDUR Q3H PRN PRN Reason: Pain Last Admin: 10/31/16 14:02 Dose: 100 mcg Fentanyl/Bupivacaine HCl (Fentanyl/Bupivacaine/Ns 2 Mcg-0.125% 100 Ml) 100 ml EPIDUR ASDIRECTED AYSE Last Admin: 10/31/16 14:02 Dose: 100 ml Lactated Ringer's (Ringers, Lactated) 1,000 mls @ 40 mls/hr IV ASDIRECTED [facility] Last Admin: 10/31/16 16:01 Dose: 40 mls/hr Oxytocin/Lactated Ringer's (Pitocin In Lr 10 Units/1,000 Ml) 10 unit in 1,000 mls @ 500 mls/hr IV TITRATE AYSE PRN Reason: Protocol Oxytocin/Lactated Ringer's (Pitocin In Lr 10 Units/1,000 Ml) 10 unit in 1,000 mls @ 12 mls/hr IV TITRATE AYSE; 2 MUNITS/MIN PRN Reason: Protocol Last Titration: 10/31/16 16:44 Dose: 0 munits/min, 0 mls/hr Penicillin G Potassium 5 (millunits/ Sodium Chloride) 100 mls @ 55 mls/hr IV ONETIME ONE Stop: 10/31/16 11:34 Last Admin: 10/31/16 11:12 Dose: 55 mls/hr Penicillin G Potassium 2.5 (millunits/ Sodium Chloride) 100 mls @ 55 mls/hr IV Q6H [facility] Last Admin: 11/01/16 07:57 Dose: Not Given Lactated Ringer's (Ringers, Lactated) Confirm Administered Dose 2,000 mls @ as directed .ROUTE .STK-MED ONE Stop: 10/31/16 17:05 Lactated Ringer's (Ringers, Lactated) 1,000 mls @ 125 mls/hr IV ASDIRECTED [facility] Cefazolin Sodium/Dextrose 2 gm (/ Premix) 50 mls @ 100 mls/hr IV ONETIME ONE Stop: 10/31/16 17:27 Last Admin: 11/01/16 07:56 Dose: Not Given Dextrose/Lactated Ringer's (Dextrose 5%-Lactated Ringers) 1,000 mls @ 125 mls/ hr IV ASDIRECTED [facility] Stop: 11/01/16 03:40 Last Admin: 10/31/16 20:21 Dose: 125 mls/hr Ketorolac Tromethamine (Toradol) Confirm Administered Dose 30 mg .ROUTE .STK- MED ONE Stop: 10/31/16 17:05 Ketorolac Tromethamine (Toradol) 30 mg IVPUSH Q6H [facility] Stop: 11/01/16 12:31 Last Admin: 11/01/16 12:31 Dose: 30 mg Lidocaine HCl (Xylocaine-Mpf 1%) 2 ml .ROUTE .STK-MED ONE Stop: 10/31/16 09:01 Lidocaine/Epinephrine (Xylocaine-Mpf 2%-Epi 1:200,000) Confirm Administered Dose 20 ml .ROUTE .STK-MED ONE Stop: 10/31/16 17:10 Metoclopramide HCl (Reglan) 10 mg IVPUSH ONETIME ONE Stop: 10/31/16 16:59 Last Admin: 10/31/16 17:14 Dose: 10 mg Misoprostol (Cytotec) 25 mcg VAG Q4H PRN PRN Reason: cervical ripening Stop: 10/31/16 00:47 Misoprostol (Cytotec) 25 mcg VAG Q4H AYSE Last Admin: 11/01/16 07:58 Dose: Not Given Morphine Sulfate (Duramorph Pf) Confirm Administered Dose 10 mg .ROUTE .STK-MED ONE Stop: 10/31/16 17:05 Nalbuphine HCl (Nubain) 10 mg IVPUSH Q2H PRN PRN Reason: Pain (moderate 4-6) Ondansetron HCl (Zofran) 4 mg IVPUSH Q4H PRN PRN Reason: Nausea/Vomiting Ondansetron HCl (Zofran) Confirm Administered Dose 4 mg .ROUTE .STK-MED ONE Stop: 10/31/16 17:05 Oxytocin (Pitocin) Confirm Administered Dose 10 unit .ROUTE .STK-MED ONE Stop: 10/31/16 17:05 Sodium Bicarbonate (Sodium Bicarbonate 8.4%) Confirm Administered Dose 50 meq .ROUTE .STK-MED ONE Stop: 10/31/16 17:10 Sodium Chloride (Saline Flush) 10 ml FLUSH ASDIRECTED PRN PRN Reason: Keep Vein Open Zolpidem Tartrate (Ambien) 10 mg PO BEDTIME PRN PRN Reason: Insomnia Last Admin: 10/31/16 00:30 Dose: 10 mg *Q Meaningful Use (DIS) - VTE *Q VTE Criteria *Q: - Stroke *Q Stroke Criteria *Q: - AMI *Q AMI Criteria *Q:
[2016-11-03] MEDS: Acetaminophen/oxyCODONE 325-5 MG Tab PO PRN (07:53)
[2016-11-03] MEDS ORDERED: Diphtheria,Pertussis(Acell),Tetanus Vaccine 0.5 ML SDV IM ONE (08:00)
[2016-11-03 10:47] VITALS: BP 132/69
== END 2016-11-03 10:40 | disposition home or self-care (01) | DRG 766 ==
LOC: JD.OB 15:36 → JD.OBCHECK 15:36 → JD.OB 15:52 → JD.MS 10-31 17:41 → OBSVTOIN 10-31 17:41 → JD.OB 10-31 17:41 → JD.MS 10-31 22:54 → JD.OB 10-31 22:54
PROVIDERS: ADMIT Obstetrics & Gynecology; ATTEND Obstetrics & Gynecology
PROC: 10D00Z1 Extraction of Products of Conception, Low, Open Approach (ICD-10-PCS; principal; 2016-10-31)
PROC: 00HU33Z Insertion of Infusion Device into Spinal Canal, Percutaneous Approach (ICD-10-PCS; 2016-10-31)
PROC: 3E0R3CZ (ICD-10-PCS; 2016-10-31)
PROC: 3E0P7GC Introduction of Other Therapeutic Substance into Female Reproductive, Via Natural or Artificial Opening (ICD-10-PCS; 2016-10-31)
PROC: 10907ZC Drainage of Amniotic Fluid, Therapeutic from Products of Conception, Via Natural or Artificial Opening (ICD-10-PCS; 2016-10-31)
DX: O14.04 Mild to moderate pre-eclampsia, complicating childbirth (principal); Z3A.40 40 weeks gestation of pregnancy; Z37.0 Single live birth; O99.820 Streptococcus B carrier state complicating pregnancy; O99.02 Anemia complicating childbirth; D57.3 Sickle-cell trait; O76 Abnormality in fetal heart rate and rhythm complicating labor and delivery; O77.0 Labor and delivery complicated by meconium in amniotic fluid; Z87.891 Personal history of nicotine dependence
CPT/HCPCS: 01967; 01968; 36415; 85027; 86850; 86900; 86901; 90715; A9270-GY; J0690; J1200; J1885; J2270; J2405; J2540; J2590; J2765; J3010; J7030; J7042; J7120

== ENCOUNTER 2017-03-27 23:19 | Emergency (ER) | payer MEDICAID, OTHER ==
[2017-03-27 23:43] VITALS: BP 164/98
--- NOTE | 2017-03-28 00:13 | EDM.PDOC ---
ED HPI GENERAL MEDICAL PROBLEM - General Chief Complaint: Skin Complaint Stated Complaint: POSS BUG BITE Time Seen by Provider: 03/28/17 00:13 - History of Present Illness INITIAL COMMENTS - FREE TEXT/NARRATIVE: 26-year-old female presents emergency room with a possible facial infection. She woke up Sunday morning with a swollen painful area above her right eye. This is on the lateral aspect of the eyebrow. She is unaware she got bit or stung by something. Since then it is become more red more painful and more swollen. She also has a painful lump just in front of her ear on the right side. The patient is concerned as she has a at home and wants to make sure this is not contagious. She is not nursing at this time this was confirmed with repeat questioning. Right Eye Pain Score (Numeric/FACES): 3 - Related Data Allergies Allergy/AdvReac Type Severity Reaction Status Date / Time mushroom Allergy Airway Verified 03/27/17 23:43 Tightness Home Meds: Home Meds prednisoLONE Acetate [Pred Forte 1% Ophth Susp] 1 drop EYEBOTH TID 03/27/17 [ History] Doxycycline Calcium [IMW: Doxycycline] 100 mg PO BID #14 cap 03/28/17 [Rx] Fluconazole [Diflucan] 150 mg PO Q24H #2 tablet 03/28/17 [Rx] Past Medical History [employer] History: Reports: Endocrine/Metabolic History: Reports: Obesity/BMI 30+ - Past Surgical History HEENT Surgical History: Reports: Other (See Below) Other HEENT Surgeries/Procedures: Cornea transplant 2014, 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 Denies: Ear Discharge, Eye Discharge, Eye Pain, Nose Pain, Vision Change Respiratory: Reports: No Symptoms Cardiovascular: Reports: No Symptoms GI/Abdominal: Reports: No Symptoms ED EXAM, SKIN/RASH Exam: See Below Exam Limited By: No Limitations General Appearance: Alert, No Apparent Distress Eye Exam: Bilateral Eye: Normal Inspection Ears: Normal External Exam, Normal Canal, Normal TMs, Other (Preauricular node on the right side) Nose: Normal Inspection, Normal Mucosa Throat/Mouth: Normal Inspection, Normal Lips, Normal Teeth, Normal Gums, Normal Oropharynx, Normal Voice, No Airway Compromise Head: Other (Over right eye lateral eyebrow she has a 1.5 cm circular raised area with a central depression few tiny pustules erythematous base no ulcerations she has what appears to be a preauricular lymph node on the right side) Neck: Normal Inspection, Supple, Non-Tender. No: Lymphadenopathy (L), Lymphadenopathy (R) Respiratory/Chest: No Respiratory Distress, Lungs Clear, Normal Breath Sounds Cardiovascular: Regular Rate, Rhythm, No Edema, No Murmur Course - Vital Signs Last Recorded V/S: Last Vital Signs Temp 36.6 C 03/27/17 23:40 Pulse 80 03/27/17 23:40 Resp 16 03/27/17 23:40 BP 164/98 H 03/27/17 23:40 Pulse Ox 96 03/27/17 23:40 Departure - Departure Time of Disposition: 00:20 Disposition: Home, Self-Care 01 Clinical Impression: Facial cellulitis - Discharge Information Prescriptions: Doxycycline Calcium [IMW: Doxycycline] 100 mg PO BID #14 cap Fluconazole [Diflucan] 150 mg PO Q24H #2 tablet Referrals: PCP,None [Primary Care Provider] - Forms: ED Department Discharge Additional Instructions: Return to the emergency room with any questions problems worsening symptoms. Follow-up with your regular provider for recheck at the Hospital clinic early next week. [phone] You been started on doxycycline this is an antibiotic take it twice daily until all gone, this should take 7 days. You also given a prescription for Diflucan take one AP developing a yeast infection may repeat after 72 hours if needed.
== END 2017-03-28 00:48 | disposition home or self-care (01) ==
LOC: JD.ED 23:19
DX: L03.211 Cellulitis of face (principal); Z87.891 Personal history of nicotine dependence
CPT/HCPCS: 99281; 99283

== ENCOUNTER 2017-11-26 20:11 | Emergency (ER) | payer OTHER ==
[2017-11-26 20:27] VITALS: BP 140/60
--- NOTE | 2017-11-26 22:12 | EDM.PDOC ---
ED HPI GENERAL MEDICAL PROBLEM - General Chief Complaint: Abdominal Pain Stated Complaint: ABDOMINAL PAIN Time Seen by Provider: 11/26/17 20:15 Source of Information: Reports: Patient History Limitations: Reports: No Limitations - History of Present Illness INITIAL COMMENTS - FREE TEXT/NARRATIVE: 27 year old female presents for evaluation and treatment of upper abdominal pain and shortness of breath. Patient reports symptoms started Sunday. She reports pain across her upper abdomen. Reports the shortness of breath is present at all times. Reports associated symptoms of polyuria, nausea and diarrhea. Denies any chest pain, cough, vomiting, pain or swelling in her legs, fevers, chills or blood in her stool. Denies any history of blood clots. Patient denies any recent travel. Patient is approximately 6-8 weeks . She is a . Was previously on depoprovera IM injections but has been off these for some time. Not on any OCPs at time of conception. Denies any vaginal bleeding ot spotting. Ob is Dr. Baker. Review of her records show she is blood type O+. 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: Reports: Endocrine/Metabolic History: Reports: Obesity/BMI 30+ - Past Surgical History HEENT Surgical History: Reports: Other (See Below) Other HEENT Surgeries/Procedures: Cornea transplant 2014, 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 Denies: Cough Cardiovascular: Denies: Chest Pain Endocrine: Reports: Polydypsia GI/Abdominal: Reports: Abdominal Pain (upper abdomen), Diarrhea, Nausea. Denies : Hematochezia, Melena, Vomiting Musculoskeletal: Reports: Other (no swelling in the legs). Denies: Leg Pain Neurological: Reports: Dizziness. Denies: Syncope ED EXAM, GI/ABD - Physical Exam Exam: See Below Exam Limited By: No Limitations General Appearance: Alert, WD/WN, No Apparent Distress, Obese Throat/Mouth: Normal Inspection, Normal Voice, No Airway Compromise Neck: Normal Inspection Respiratory/Chest: No Respiratory Distress, Lungs Clear, Normal Breath Sounds Cardiovascular: Normal Peripheral Pulses, Regular Rate, Rhythm, No Murmur GI/Abdominal Exam: Normal Bowel Sounds, Soft, Non-Tender Extremities: Normal Inspection, Non-Tender. No: Toi's Sign Neurological: Alert, Oriented, Normal Cognition Psychiatric: Normal Affect, Normal Mood Skin Exam: Warm, Dry, Normal Color Course - Vital Signs Last Recorded V/S: Last Vital Signs Temp 98.6 F 11/26/17 20:24 Pulse 67 11/26/17 20:24 Resp 16 11/26/17 20:24 BP 140/60 11/26/17 20:24 Pulse Ox 100 11/26/17 20:24 - Orders/Labs/Meds Labs: Laboratory Tests 11/26/17 11/26/17 11/26/17 Range/Units 20:17 21:01 21:01 WBC 5.95 (3.98-10.04) K/mm3 RBC 4.82 (3.98-5.22) M/mm3 Hgb 13.4 (11.2-15.7) gm/L Hct 39.8 (34.1-44.9) % MCV 82.6 (79.4-94.8) fl MCH 27.8 (25.6-32.2) pg MCHC 33.7 (32.2-35.5) g/dl RDW Std Deviation 38.8 (36.4-46.3) fL Plt Count 325 (182-369) K/mm3 MPV 9.3 L (9.4-12.3) fl Neut % (Auto) 70.1 (34.0-71.1) % Lymph % (Auto) 22.5 (19.3-51.7) % [place] % (Auto) 6.2 (4.7-12.5) % Eos % (Auto) 0.5 L (0.7-5.8) Baso % (Auto) 0.5 (0.1-1.2) % Neut # (Auto) 4.17 (1.56-6.13) K/mm3 Lymph # (Auto) 1.34 (1.18-3.74) K/mm3 [place] # (Auto) 0.37 H (0.24-0.36) K/mm3 Eos # (Auto) 0.03 L (0.04-0.36) K/mm3 Baso # (Auto) 0.03 (0.01-0.08) K/mm3 Sodium 143 (136-145) mEq/L Potassium 3.5 (3.5-5.1) mEq/L Chloride 106 (98-107) mEq/L Carbon Dioxide 25 (21-32) mEq/L Anion Gap 15.5 H (5-15) BUN 6 L (7-18) mg/dL Creatinine 0.7 (0.55-1.02) mg/dL Est Cr Clr Drug Dosing 101.63 mL/min Estimated GFR (MDRD) > 60 (>60) mL/min BUN/Creatinine Ratio 8.6 L (14-18) Glucose 91 (74-106) mg/dL Calcium 8.9 (8.5-10.1) mg/dL Total Bilirubin 0.2 (0.2-1.0) mg/dL AST 19 (15-37) U/L ALT 29 (14-59) U/L Alkaline Phosphatase 105 (46-116) U/L Total Protein 7.2 (6.4-8.2) g/dl Albumin 3.6 (3.4-5.0) g/dl Globulin 3.6 gm/dL Albumin/Globulin Ratio 1.0 (1-2) HCG, Quant 02725.0 mIU/mL Urine Color Yellow (Yellow) Urine Appearance Clear (Clear) Urine pH 5.5 (5.0-8.0) Ur Specific [place] 1.020 (1.005-1.030) Urine Protein Negative (Negative) Urine Glucose (UA) Negative (Negative) Urine Ketones Negative (Negative) Urine Occult Blood Negative (Negative) Urine Nitrite Negative (Negative) Urine Bilirubin Negative (Negative) Urine Urobilinogen 0.2 (0.2-1.0) Ur Leukocyte Esterase Negative (Negative) Urine RBC Not seen (0-5) /hpf Urine WBC 0-5 (0-5) /hpf Ur Epithelial Cells 20-30 H (0-5) /hpf Urine Bacteria Not seen (FEW) /hpf Urine Mucus Not seen (FEW) /hpf - Re-Assessments/Exams Free Text/Narrative Re-Assessment/Exam: 11/26/17 22:09 I reviewed the labs with the patient. Offered chest xray and shielding her abdomen, she declined. She is anxious to go at this point. States her works nights and they need to get home. She would like to follow-up with her Ob this week and declined any additional testing. Discharge instructions as documented. Departure - Departure Time of Disposition: 22:11 Disposition: Home, Self-Care 01 Condition: Good Clinical Impression: Abdominal pain - Discharge Information *PRESCRIPTION DRUG MONITORING PROGRAM REVIEWED*: No *COPY OF PRESCRIPTION DRUG MONITORING REPORT IN PATIENT RANGEL: No Referrals: Kalie Ponce MD [Primary Care Provider] - Forms: ED Department Discharge Additional Instructions: Follow-up with Dr. Ponce this week or early next week. A list has been provided the medications you may take during . Please return to the ER for symptoms change or worsen.
== END 2017-11-26 22:11 | disposition home or self-care (01) ==
LOC: JD.ED 20:11
DX: O99.89 Other specified diseases and conditions complicating pregnancy, childbirth and the puerperium (principal); R10.10 Upper abdominal pain, unspecified; R06.02 Shortness of breath; Z91.018 Allergy to other foods; Z79.899 Other long term (current) drug therapy; Z3A.01 Less than 8 weeks gestation of pregnancy
CPT/HCPCS: 36415; 80053; 81001; 84702; 85025; 99283; 99284